=== PATIENT | female | born 1990 ===

== ENCOUNTER 2018-02-10 17:52 | Inpatient (IN) | payer OTHER ==
[~2018-02-10] VITALS: Ht 175.3 cm; Wt 101.6 kg
[2018-02-10] MEDS ORDERED: SYNTHROID137 MCG PO (20:13)
[2018-02-10] MEDS ORDERED: SYNTHROID50 MCG PO (20:13)
[2018-02-10] MEDS ORDERED: PRENATAL FORMU1 EAC1 PO (20:14)
== END 2018-02-13 13:34 | disposition home or self-care (01) | DRG 781 ==
LOC: LDR 17:52 → OB/GYN 17:52
PROC: BY4FZZZ Ultrasonography of Third Trimester, Single Fetus (ICD-10-PCS; principal; 2018-02-10)
PROC: 4A1HXCZ Monitoring of Products of Conception, Cardiac Rate, External Approach (ICD-10-PCS; 2018-02-10)
DX: O41.03X0 Oligohydramnios, third trimester, not applicable or unspecified (principal); O99.283 Endocrine, nutritional and metabolic diseases complicating pregnancy, third trimester; E03.8 Other specified hypothyroidism